=== PATIENT | female | born 1970 | race African-American/Black ===

== ENCOUNTER → 2016-06-18 | Outpatient (CLI) | payer OTHER ==
--- NOTE | ~2016-06-18 | S ---
[facility] [address] [place] [address] SURGICAL PATH RPT PROCEDURE Name: MARIELA MARQUEZ Room #: REG [facility] M..#: [id number] Admission: 06/18/16 Date of : 68 Discharge: Report #: [id number] Path Case #: [id number] PATHOLOGY REPORT COLLECTION DATE: 06/18/2016 RECEIVED DATE: 06/18/2016 SUBMITTING PHYS: Dr. Davi Fang OTHER PHYS: Dr. Alex Reed ADDENDUM REPORT (Order Date: 06/22/2016 11:38) ADDENDUM COMMENT: This addendum is to document the [facility] notification. The case was discussed with Antoinette in the [facility] on 06/22/16, at 10:45 a.m. The final diagnosis remains unchanged. (CLW:kamille; d/t: 06/22/2016) Professional services performed by [facility] at [facility] [address], [place] [address] [facility] by [facility] at [address] [place] [address], [address] [place] [address]. ELECTRONICALLY SIGNED BY: Elyssa Lewis M.D. DATE/TIME:06/22/2016 14:26 SPECIMEN(S) RECEIVED: A.Rt US 1200 4CMFN * * * * * * * * * * * * FINAL DIAGNOSIS: "RT US 1200 4 cm FN", ultrasound guided needle biopsy: - INVASIVE DUCTAL CARCINOMA, MODERATELY DIFFERENTIATED, GRADE II, INVOLVING MULTIPLE CORES, LARGEST CONTIGUOUS FOCUS MEASURING 0.9 CM ON THE SLIDE. (SEE COMMENT) - DUCTAL CARCINOMA IN-SITU, INTERMEDIATE NUCLEAR GRADE, SOLID CRIBRIFORM AND COMEDO SUBTYPES. COMMENT: Specimen type: ultrasound guided needle biopsy Tumor site: rt us 1200 4 cm fn Tumor quantitation: largest contiguous focus measuring 0.9 cm on the slide Histologic type: invasive ductal carcinoma Histologic grade: grade II, moderately differentiated Tubules, nuclei and mitoses: tubule score 2, nuclei score 3, [address] [address] SURGICAL PATH RPT PROCEDURE Name: MARIELA MARQUEZ Room #: [facility] Braeden.#: [id number] Admission: 06/18/16 Date of : 68 Discharge: Report #: [id number] Path Case #: [id number] mitoses score 2 LVSI: not identified Microcalcifications: not identified Markers: ER/WY, Her2, ki67 Block: A1 Spreader slides are co-reviewed with Dr. Marilyn Sánchez. The case will be discussed with the [facility] on 06/22/16. (CLW:all; d/t: 06/21/2016) PATHOLOGIST: Elyssa Lewis M.D. REPORT ELECTRONICALLY SIGNED BY: Elyssa Lewis M.D. DATE/TIME: 06/21/2016 22:35 * * * * * * * * * * * * GROSS PATHOLOGY: Received in formalin labeled "Mariela Marquez and right breast bx 12:00 4 cm from nipple," are several needle cores of yellow-marquez fibrofatty tissue measuring 2.5 x 2.2 x 0.4 cm in aggregate dimensions. The tissue is submitted in its entirety in cassettes A1-A2. The cold ischemic time is less than 1 minute. The total formalin fixation time is 42 hours and 5 minutes. (TTL; 06/18/2016) CLINICAL HISTORY: Right breast mass INITIAL CPT CODE(S): A; 36219, 59366(4) Professional services performed by [facility] at [facility] [address] [facility], [place] [address] Technical services performed by [facility] at [address] [place] [address], [address], [place] [address]. PROCEDURE REPORT (Order Date: 06/21/2016 00:00) INTERPRETATION: Quantitative image analysis was performed on block A1. Please see SCANNED IMAGES under LABORATORY for scanned image of results. COMMENT: PATHOLOGIST: Ruben Donato M.D. REPORT ELECTRONICALLY SIGNED BY: Elyssa Lewis M.D. for Ruben Donato M.D. [facility] [address] [place] [address] SURGICAL PATH RPT PROCEDURE Name: MARIELA MARQUEZ Room #: REG [facility] Fregoso#: [id number] Admission: 06/18/16 Date of : 68 Discharge: Report #: [id number] Path Case #: [id number] DATE/TIME: 06/29/2016 08:50 [facility] [place] [address] PHONE: [phone] DIRECTOR: Reji Manjarrez M.D. * * * END OF REPORT * * *
== END ==
LOC: ULTRA 01:15
DX: N63 Unspecified lump in breast (principal); C50.911 Malignant neoplasm of unspecified site of right female breast

== ENCOUNTER → 2019-05-01 | Outpatient (CLI) | payer OTHER ==
[~2019-05-01] MED LIST: ANTIVERT25 MG PO; METFORMIN HCL500 MG PO
== END ==
LOC: RAD 13:03
DX: C50.911 Malignant neoplasm of unspecified site of right female breast (principal); Z17.0 Estrogen receptor positive status [ER+]

== ENCOUNTER → 2019-11-01 | Outpatient (CLI) | payer OTHER | LOC: ULTRA 08:09 → BC 08:09 | DX: N63.12 Unspecified lump in the right breast, upper inner quadrant (principal); N63.11 Unspecified lump in the right breast, upper outer quadrant; N63.13 Unspecified lump in the right breast, lower outer quadrant ==

== ENCOUNTER → 2020-12-12 | Outpatient (CLI) | payer OTHER | LOC: BC 11:09 | PROVIDERS: ATTEND Family Medicine | DX: Z12.31 Encounter for screening mammogram for malignant neoplasm of breast (principal) ==